=== PATIENT | female | born 1945 | race African-American/Black ===

== ENCOUNTER 2018-11-13 18:08 | Inpatient (IN) | payer BC, MEDICARE ==
[~2018-11-13] VITALS: Ht 158.8 cm; Wt 63.5 kg
[2018-11-13] MEDS ORDERED: LOSA25TA12 PO (18:33)
[2018-11-13] MEDS ORDERED: LABETALOL 5MG/ML SYR 20 MG/4 ML SYRINGE IV ONE (19:15)
[2018-11-13] MEDS ORDERED: ONDANSETRON HCL 4MG/2ML INJ IV ONE (19:15)
[2018-11-13 19:42] LABS: BASOPHILS % 0.7 % (0.0-2.0); EOSINOPHILS % 2.2 % (0.0-5.0); HEMATOCRIT. 35.6 % (36.0-48.0); HEMOGLOBIN. 11.8 g/dL (12.0-16.0); LYMPHOCYTES % 25.7 % (20.0-50.0); MEAN CORPUSCULAR HEMOGLOBIN 30.1 pg (28.0-32.0); MEAN CORPUSCULAR VOLUME 90.8 fL (81.0-99.0); MEAN PLATELET VOLUME 7.1 fl (7.4-10.4); MONOCYTES % 8.7 % (2.0-8.0); NEUTROPHILS % 62.7 % (40.0-76.0); PLATELET 298 x1000/uL (130-400); RED BLOOD CELL COUNT 3.92 mill/uL (4.2-5.4); RED CELL DISTRIBUTION WIDTH 13.5 % (11.6-14.6)
[2018-11-13 19:48] LABS: CHLORIDE 107 mEq/L (98-107)
[2018-11-13 19:49] LABS: PARTIAL THROMBOPLASTIN TIME 24.7 sec (23.4-31.0); PROTHROMBIN TIME 10.2 sec (9.6-11.0)
[2018-11-13] MEDS ORDERED: ENALAPRIL 2.5MG/2ML VIAL 2ML IV ONE (20:15)
[2018-11-13] MEDS ORDERED: ACETAMINOPHEN 325MG TABLET PO ONE (22:00)
[2018-11-14] MEDS ORDERED: AMLODIPINE 10MG TABLET PO SCH ×2 (03:39→09:00)
[2018-11-14 04:00] VITALS: BP 122/40
[2018-11-14] MEDS ORDERED: ASPI-1158 MT (04:43)
[2018-11-14] MEDS ORDERED: FISH MT (04:43)
[2018-11-14] MEDS ORDERED: BENA1TAB19 MT (04:43)
[2018-11-14] MEDS ORDERED: METF-414 MT (04:43)
[2018-11-14] MEDS ORDERED: GABA-529 MT (04:43)
[2018-11-14] MEDS ORDERED: CLONIDINE 0.1MG TABLET PO PRN (08:15)
[2018-11-14] MEDS ORDERED: ACETAMINOPHEN 325MG TABLET PO PRN (08:15)
[2018-11-14] MEDS ORDERED: ONDANSETRON HCL 4MG/2ML INJ IV PRN (08:15)
[2018-11-14 12:00] VITALS: BP 149/41
[2018-11-14 13:24] VITALS: BP 149/41
[2018-11-14] MEDS ORDERED: ATORVASTATIN CALCIUM 40MG TABLET PO SCH (21:00)
== END 2018-11-14 16:02 | disposition home or self-care (01) | DRG 305 ==
LOC: ER 18:08 → 6WST 21:31 → EDBEDREQ 21:33 → EDBEDREQTM 21:33 → ENRESERV 11-14 03:33
PROVIDERS: ADMIT Internal Medicine; ATTEND Internal Medicine
DX: I16.1 Hypertensive emergency (principal); E78.5 Hyperlipidemia, unspecified; I10 Essential (primary) hypertension; Z79.82 Long term (current) use of aspirin; Z86.73 Personal history of transient ischemic attack (TIA), and cerebral infarction without residual deficits
CPT/HCPCS: 36415; 71045; 80061; 83880; 84443; 84484; 93005; 96374; 96375; 99291; J2405; J3490

== ENCOUNTER 2023-07-11 20:34 | Emergency (ER) | payer OTHER, BC ==
[~2023-07-11] VITALS: Ht 160 cm; Wt 67.0 kg
[~2023-07-11 20:34] MED LIST: ASPI-1406 MT; BENA1TAB19 MT; FISH MT; GABA-529 MT; LOSA25TA26 PO; METF-414 MT
[2023-07-11 20:36] VITALS: TEMP 99.9; O2SAT 96
[2023-07-11] MEDS ORDERED: LEVETIRACETAM 1000MG PREMIX 100 ML IV ONE (23:00)
[2023-07-11] MEDS ORDERED: NICARDIPINE 50 MG in SODIUM CHLORIDE 0.9% 230 ML IV PRN (23:00)
[2023-07-11 23:03] LABS: BASOPHILS % 0.5 % (0.0-2.0); EOSINOPHILS % 0.1 % (0.0-5.0); HEMATOCRIT. 37.8 % (36.0-48.0); HEMOGLOBIN. 12.4 g/dL (12.0-16.0); LYMPHOCYTES % 10.9 % (20.0-50.0); MEAN CORPUSCULAR HEMOGLOBIN 30.2 pg (28.0-32.0); MEAN CORPUSCULAR HGB CONC 32.7 g/dL (31.0-37.0); MEAN CORPUSCULAR VOLUME 92.1 fL (81.0-99.0); MEAN PLATELET VOLUME 6.7 fl (7.4-10.4); MONOCYTES % 9.8 % (2.0-8.0); NEUTROPHILS % 78.7 % (40.0-76.0); PLATELET 280 x1000/uL (130-400); RED CELL DISTRIBUTION WIDTH 12.9 % (11.6-14.6); WHITE BLOOD COUNT 7.9 x1000/uL (4.5-11.0)
[2023-07-11] MEDS ORDERED: LEVETIRACETAM 1000MG PREMIX 100 ML IV NR (23:15)
[2023-07-11] MEDS ORDERED: ONDANSETRON HCL 4MG/2ML INJ IV NR (23:15)
[2023-07-11 23:17] LABS: ALANINE AMINOTRANSFERASE 22 IU/L (10-49); ALBUMIN 4.6 g/dL (3.2-4.8); ASPARTATE AMINOTRANSFERASE 35 IU/L (<34); BILIRUBIN TOTAL 0.4 mg/dL (0.1-1.0); CALCIUM 9.9 mg/dL (8.7-10.4); CARBON DIOXIDE 28 mEq/L (21-32); CHLORIDE 102 mEq/L (98-107); CREATININE 1.2 mg/dL (0.6-1.0); GLUCOSE 135 mg/dL (70-105); PHOSPHORUS 3.4 mg/dL (2.5-4.9); POTASSIUM 4.1 mEq/L (3.5-5.1); PROTEIN TOTAL 7.4 g/dL (6.0-8.3); SODIUM 138 mEq/L (136-145); UREA NITROGEN BLOOD 21 mg/dL (9-23)
[2023-07-11 23:22] LABS: TROPONIN I HIGH SENSITIVITY < 4 ng/L (3.0-34)
[2023-07-12] MEDS: SODIUM CHLORIDE 0.9% 1,000 ML IV ONE (02:35)
[2023-07-12] MEDS: ONDANSETRON HCL 4MG/2ML INJ IV ONE (02:35)
[2023-07-12] MEDS: ACETAMINOPHEN 325MG TABLET PO NR (02:35)
[2023-07-12] MEDS: MAGNESIUM/ALUMINUM HYDROXIDE/SIMETHICONE 30ML UDC PO ONE (02:36)
[2023-07-12] MEDS ORDERED: ONDA4TAB50 MT (02:49)
[2023-07-12] MEDS ORDERED: ACET-2708 MT (02:49)
[2023-07-12] MEDS ORDERED: MAG355OR21 MT (02:49)
[2023-07-12 03:34] VITALS: BP 108/57; PULSE 97; RESP 12
== END 2023-07-12 04:57 | disposition home or self-care (01) ==
LOC: ER 20:34
DX: B34.9 Viral infection, unspecified (principal); I10 Essential (primary) hypertension; Z79.899 Other long term (current) drug therapy
CPT/HCPCS: 36415; 80053; 83735; 84100; 84484; 85025; 93005; 96361; 96374; 99284